=== PATIENT | female | born 1955 | race Caucasian/White ===

== ENCOUNTER 2018-07-13 14:46 | Observation (INO) ==
[2018-07-13] MEDS ORDERED: *HR* LORazepam 1 MG TABLET PO PRN (17:47)
[2018-07-13] MEDS ORDERED: Acetaminophen 325 MG TABLET PO PRN (17:48)
[2018-07-13] MEDS ORDERED: traMADol 50 MG TABLET PO PRN (17:48)
[2018-07-13] MEDS ORDERED: Naloxone 0.4 MG/ML INJ IVP PRN (17:48)
[2018-07-13] MEDS ORDERED: *HR* Dextrose 50 % in Water (Syg) 50 ML SYRINGE IVP PRN (17:51)
[2018-07-13] MEDS ORDERED: D5% in Water 1,000 ML IVC PRN (17:51)
[2018-07-13] MEDS ORDERED: Dextrose Gel 15 GM/37.5 ML TUBE PO PRN ×2 (17:51)
[2018-07-13] MEDS ORDERED: Ondansetron 4 MG/2 ML VIAL IVP PRN (17:53)
[2018-07-13] MEDS ORDERED: 0.9 % Sodium Chloride 2,000 ML IVC SCH (18:00)
--- NOTE | 2018-07-13 18:09 | Internal Med History&Physical ---
Date of Encounter: 07/13/18 Time of Encounter: 17:59 Internal Medicine - H&P: HPI Admitted From: Home Plans for Post Hospital Care: Home History of present illness: Ms. Lucas is a 62 year old female with past medical history of diabetes, asthma, with past medical history of diabetes, asthma, hypertension, and a current smoker presented with acute onset of vertigo. Patient was in her usual health state until yesterday morning, when she had a severe vertigo after getting up. The vertigo was described by patient as a spinning sensation, she had trouble maintaining balance. Vertigo is intermittent, relieved by sitting still or laying down, worsened by moving head. She had no recent URI or other infection. She denies headache, numbness, weakness, or tingling. No Hx of CVA or migraine. She denies prior similar attacks. She also denies tinnitus or hearing loss. She presented to [facility] , where her vital signs appeared normal. Labs including CBC and BMP were unremarkable. A CXR and CT head showed no acute abnormalities. She was transferred to this hospital for MRI and further evaluation. Past Med Surg Social Fam HX - Past Medical History Medical history: asthma, COPD, diabetes, GERD, hypertension Psychiatric history: no psych history - Past Surgical History Surgical History: hysterectomy - Social History Smoking Status: Current every day smoker Smokeless Tobacco Status: No Alcohol use: none Drug use: none - Family History Mother Hx Family Cardiac Disorders: Yes Father Hx Family Cardiac Disorders: Yes Internal Medicine - H&P: Meds Fluticasone/Salmeterol [Advair 100-50 Diskus] 1 each IH BID 07/08/16 [History] Lisinopril [Zestril] 10 mg PO DAILY 07/08/16 [History] Lovastatin 40 mg PO HS 07/08/16 [History] Metformin HCl [Glucophage] 1,000 mg PO BID 07/08/16 [History] OxyCODONE Immed Rel [Roxicodone 5 MG] 5 mg PO Q6HR PRN #60 tablet 07/09/16 [Rx] Allergy/AdvReac Type Severity Reaction Status Date / Time No Known Allergies Allergy Verified 07/08/16 07:06 All Systems PM: A 10-system review of systems was performed and is negative for pertinent findings except as documented above in the HPI. Review of systems: REVIEW OF SYSTEMS: CONSTITUTIONAL: No weight loss, fever, chills, weakness or fatigue. HEENT: Eyes: No visual loss, blurred vision, double vision or yellow sclerae. Ears, Nose, Throat: No hearing loss, sneezing, congestion, runny nose or sore throat. SKIN: No rash or itching. CARDIOVASCULAR: No chest pain, chest pressure or chest discomfort. No palpitations or edema. RESPIRATORY: No shortness of breath, cough or sputum. GASTROINTESTINAL: No anorexia, nausea, vomiting or diarrhea. No abdominal pain or blood. GENITOURINARY: No dysuria, urgency, or frequency. NEUROLOGICAL: see HPI. MUSCULOSKELETAL: No muscle, back pain, joint pain or stiffness. HEMATOLOGIC: No anemia, bleeding or bruising. LYMPHATICS: No enlarged nodes. No history of splenectomy. PSYCHIATRIC: No history of depression or anxiety. ENDOCRINOLOGIC: No reports of sweating, cold or heat intolerance. No polyuria or polydipsia. - Constitutional Vitals: Temp Pulse Resp BP Pulse Ox 97.8 F 70 18 129/77 95 07/13/18 17:12 07/13/18 17:12 07/13/18 17:12 07/13/18 17:12 07/13/18 17:12 General appearance: Present: A&O X 3, answers questions appropriately Exam: PHYSICAL EXAMINATION: GENERAL APPEARANCE: The patient is alert, oriented and in no acute distress. HEENT: Head is normocephalic. The sinuses are nontender. Pupils are equal and reactive. The nares are patent. Oropharynx clear without lesions. NECK: Supple without lymphadenopathy. HEART: Regular rate and rhythm. LUNGS: No crackles or wheezes are heard. ABDOMEN: Soft, nontender, nondistended with good bowel sounds heard. Inguinal area is normal. EXTREMITIES: Without cyanosis, clubbing or edema. NEUROLOGICAL: Normal motor and sensory function. negative cerebellar signs. normal hearing test. Left sided nystagmus. Positive [place]-Hallpike maneuver. SKIN: Warm and dry without any rash. - Assessment and plan (1) Vertigo Current Visit: Yes Status: Acute Assessment and plan: 62 year-old female presented with acute onset of vertigo. Vertigo can be elicited by turning eye to right side. Relieved by fixing gaze. right side [place]- Hallpike maneuver elicited strong vertigo. Sings and symptoms are highly suggestive peripheral etiology rather than central pathology. Intermittent and relatively brief symptoms and abated by sitting still, combined with a positive [place]-Hallpike maneuver is suggestive for BPPV. - MRI brain to r/o posterior circulation stroke. - Symptoms relief with oral antivert. - OT for vestibular rehab ( [place] Maneuver) (2) HTN (hypertension) Current Visit: No Status: Chronic Assessment and plan: BP well controlled, continue home medication. Qualifiers: Hypertension type: essential hypertension Qualified Code(s): I10 - Essential (primary) hypertension (3) Asthma Current Visit: No Status: Chronic Assessment and plan: No respiratory distress, continue home medication. Qualifiers: Asthma persistence: unspecified Asthma complication type: unspecified Qualified Code(s): J45.909 - Unspecified asthma, uncomplicated (4) Diabetes mellitus Current Visit: No Status: Chronic Assessment and plan: Continue sliding scale, hold metformin. Qualifiers: Diabetes mellitus type: type 2 Diabetes mellitus snf insulin use: without snf use Diabetes mellitus complication status: without complication Qualified Code(s): E11.9 - Type 2 diabetes mellitus without complications (5) DVT prophylaxis Current Visit: Yes Status: Acute Assessment and plan: Heparin subcutaneous - Time Spent With Patient Total time spent is greater than 50% in coordination of care (as documented) at patient's floor/unit and/or counseling patient: Greater than 35 minutes
[2018-07-13] MEDS ORDERED: Albuterol 2.5 MG/3 ML NEBULIZER IH PRN (18:29)
[2018-07-13] MEDS: Budesonide/Formoterol 80/4.5 MDI IH SCH (20:23)
[2018-07-13] MEDS ORDERED: Insulin LISPRO 300 UNITS/3 ML VIAL SQ SCH (21:00)
[2018-07-14 04:44] LABS: Basophils # 0.1 K/mcL (0.0-0.2); Basophils % 0.7 %; Eosinophils # 0.2 K/mcL (0.0-0.6); Eosinophils % 2.7 %; Hematocrit 38.9 % (35.3-44.9); Hemoglobin 12.8 g/dL (11.5-15.4); Immature Granulocytes % 0.4 % (0-4); Lymphocytes # 2.6 K/mcL (0.6-4.6); Lymphocytes % 32.9 %; Mean Corpuscular HGB Conc 32.9 g/dL (31.6-35.5); Mean Corpuscular Hemoglobin 31.1 pg (28.0-33.3); Mean Corpuscular Volume 94.4 fL (83.0-100.0); Mean Platelet Volume 10.6 fL (9.4-12.4); Monocytes # 0.5 K/mcL (0.0-1.3); Monocytes % 6.4 %; Neutrophils # 4.6 K/mcL (1.6-8.9); Platelet Count 203 K/mcL (140-400); Red Blood Count 4.12 M/mcL (3.82-4.97); Red Cell Distribution Width 12.8 % (11.5-14.5); Segmented Neutrophils % 56.9 %
[2018-07-14 05:05] LABS: BUN/Creatinine Ratio 20 (6-26); Blood Urea Nitrogen 14 mg/dL (8-23); Calcium 8.5 mg/dL (8.6-10.3); Carbon Dioxide 25 mEq/L (23-29); Chloride 111 mEq/L (98-107); Glucose 135 mg/dL (70-105); Osmolality,Calculated 297 (280-300); Sodium 142 mEq/L (136-145); eGFR For Non-African Americans > 60 (> 60)
[2018-07-14] MEDS: Budesonide/Formoterol 80/4.5 MDI IH SCH (08:13)
[2018-07-14] MEDS ORDERED: Fluticasone Propionate Nasal 50 MCG/SPRAY BOTTLE NS SCH (09:00)
[2018-07-14] MEDS: Insulin LISPRO 300 UNITS/3 ML VIAL SQ SCH ×2 (09:35→11:58)
--- NOTE | 2018-07-14 10:25 | Neurology - Consult Note ---
<Ar Garza - Last Filed: 07/14/18 10:21> Date of Encounter: 07/14/18 (q) Time of Encounter: 10:27 Assessment and Plan (1) BPPV (benign paroxysmal positional vertigo) Current Visit: Yes Status: Acute Patient has right benign proximal positional vertigo. [place]-Hallpike maneuver positive on the right. MRI of the brain was negative for CVA/acute changes. Patient also does not have tenderness, hearing loss. Unlikely this is central pathology. Plan: Recommend continuing meclizine. Primary may consult ENT for further evaluation. Qualifiers: Laterality: right Qualified Code(s): H81.11 - Benign paroxysmal vertigo, right ear History of Present Illness Chief complaint: dizziness HPI: Ms. Lucas is a 62 year old female presents with chief complaint of dizziness. This started yesterday morning when she woke up. Patient sat up in bed and this started having room spinning sensation with nausea. Initially patient was able to ambulate but as the day progressed she had difficulty. Patient denies ever h aving these symptoms in the past. She also denies headache, numbness, tingling, slurred speech, weakness, tinnitus, hearing loss, ear pain, double vision. Patient's CT of the head was negative as well as MRI. Past Med Surg Social Fam HX - Past Medical History Medical history: asthma, COPD, diabetes, GERD, hypertension Psychiatric history: no psych history - Past Surgical History Surgical History: hysterectomy Additional surgical history: spinal senosis surgery shira - Social History Smoking Status: Current every day smoker Packs per day: 1 Smokeless Tobacco Status: No Alcohol use: none Drug use: none - Family History Mother Hx Family Cardiac Disorders: Yes Hx Family Respiratory Disorders: Yes Hx Family Cancer: Yes Hx Family GI Disorders: No Hx Family Genitourinary Disorders: No Hx Family Endocrine Disorder: Yes Hx Family Musculoskeletal Disorders: No Hx Family Neuromuscular Disorders: No Hx Family Neurologic Disorders: No Hx Family HEENT Disorders: No Hx Family Autoimmune Disorders: No Hx Family Reproductive Disorders: No Hx Family Psychosocial Disorders: No Hx Family Medical Disorders: No Father Hx Family Cardiac Disorders: Yes Hx Family Respiratory Disorders: Yes Hx Family Cancer: Yes (lung) Hx Family GI Disorders: No Hx Family Genitourinary Disorders: No Hx Family Endocrine Disorder: Yes Hx Family Musculoskeletal Disorders: No Hx Family Neuromuscular Disorders: No Hx Family Neurologic Disorders: No Hx Family HEENT Disorders: No Hx Family Autoimmune Disorders: No Hx Family Reproductive Disorders: No Hx Family Psychosocial Disorders: No Medications and Allergies Metformin HCl [Glucophage] 1,000 mg PO QPM 07/08/16 [History] Ranitidine HCl [Acid Cook Italian Style Food] 150 mg PO QPM 07/13/18 [History] Albuterol Sulfate [Ventolin Hfa] 2 puff IH Q4-6H PRN 07/14/18 [History] BuPROPion XL (24 HR) [Wellbutrin XL] 150 mg PO DAILY 07/14/18 [History] Fluticasone/Salmeterol [Advair 500-50 Diskus] 1 puff IH BID 07/14/18 [History] Lisinopril/Hydrochlorothiazide [Zestoretic 10-12.5 mg Tablet] 1 tab PO DAILY 07/14/18 [History] Simvastatin [Zocor] 40 mg PO HS 07/14/18 [History] Allergy/AdvReac Type Severity Reaction Status Date / Time No Known Allergies Allergy Verified 07/14/18 08:28 All Systems: The remainder of the systems were reviewed and are negative Review of Systems: Constitutional: Denies fever, chills HEENT: Denies headache, trauma, blurry vision, eye discharge, ear pain, ear discharge neck pain, sore throat, rhinorrhea Heart: Denies chest pain palpitations, LE edema Lungs: Denies shortness of breath cough Abdomen: Denies abdominal pain nausea vomiting diarrhea MSK: Denies back pain, falls, joint pain Kidney: Denies dysuria, hematuria Skin: Denies rash, ulcers Neuro: As per history of present illness Psych: denies axniety, depression Physical Examination - Vital Signs Vital Signs: Initial Vital Signs Temp Pulse Resp BP Pulse Ox 97.8 F 70 18 129/77 95 07/13/18 17:12 07/13/18 17:12 07/13/18 17:12 07/13/18 17:12 07/13/18 17:12 - Exam Exam: General: pleasant, without distress HEENT: Head atraumatic, normocephalic, EOMI, PERRL, absent ear discharge or trauma, Moist Mucous Membranes, uvula midline Neck: nontender to palpation, absent lymphadenopathy, Cardiovascualr: Regular rate and rhythm with no murmur, absent gallops or rubs, absent pedal edema, radial pulses 2 out of 4 Lungs: Clear to auscultation bilaterally, not in respiratory distress Abdomen: Soft nontender, nondistended positive bowel sounds, absent hepatomegaly Skin: warm and dry, absent rash, absent open wounds and nodules MSK: absent clubbing, cyanosis, joints without swelling Psych: good insight and judgment - Constitutional General appearance: comfortable - Neurologic Sensorimotor examination: intact Motor examination - right side: 01/16: deltoids, biceps, triceps, wrist flexion, wrist extension, recruiting coordinator, hip flexors, tibialis Anterior, quadriceps, toe extension (EHL), plantarflexion Motor examination - left side: 01/16: deltoids, biceps, triceps, wrist flexion, wrist extension, hip flexors, recruiting coordinator, quadriceps, tibialis Anterior, toe extension (EHL), plantarflexion Detailed sensory examination: intact Reflex and gait examination: intact Reflexes: Biceps: 2+, Triceps: 2+, Brachioradialis: 2+, Patella: 2+, Achilles: 2+ Mental Status Examination: awake, alert, oriented to person, oriented to place, oriented to time, follows commands appropriately, answers questions appropriately, no agnosia, no aphasia, no aproxia Cranial nerve examination: PERRL, EOMI, visual wolf intact, sensory to face intact, mastication intact, no facial asymmetry is present, no dysarthria, hearing is intact symmetrically, soft palate elevates bilaterally upon phonation, flexes SCM and trapezius muscles symmetrically with full power, tongue protrudes midline, no atrophy or facial fasiculations present Cerebellar examination: no dysmetria, performs finger to nose and heel to sheldon symmetrically without ataxia, no difficulty with rapid alternating movements Ocular dysmotility: gaze-evoked nystagmus Results - Laboratory Findings CBC and BMP: 07/14/18 04:02 07/14/18 04:02 Abnormal lab findings: Abnormal lab results Chloride 111 mEq/L (98-107) H 07/14/18 04:02 Glucose 135 mg/dL (70-105) H 07/14/18 04:02 POC Glucose 143 mg/dL (70-99) H 07/13/18 21:09 Calcium 8.5 mg/dL (8.6-10.3) L 07/14/18 04:02 Consult Discharge Plan - Plan Referrals: Little Victoria, [employer] TECHNICIAN [Primary Care Provider] - 07/21/18 1:00 pm <Ben Salcido - Last Filed: 07/14/18 15:32> Date of Encounter: 07/14/18 Time of Encounter: 07:30 Assessment and Plan (1) BPPV (benign paroxysmal positional vertigo) Current Visit: Yes Status: Acute I agree with Dr. Garza's assessment as stated above. Neurologic examination is normal, the [place]-Hallpike maneuver reproduced her symptoms. MRI scan of the brain was negative for evidence of brainstem infarct or acoustic neuroma. I will reevaluate your request. Qualifiers: Laterality: right Qualified Code(s): H81.11 - Benign paroxysmal vertigo, right ear History of Present Illness HPI: The chart was reviewed, the patient was seen and examined. I did review the CT as well as the MRI scan of the brain. I agree with Dr. Garza's assessment as stated above. Patient denies any focal findings. She has had 2 days of vertigo with associated nausea. He denies any tinnitus denies any numbness tingling or weakness of the face arms or legs. Symptoms seem to be worse when lying supine or turning toward the right. All Systems: The remainder of the systems were reviewed and are negative Review of Systems: The balance of the systems review is negative. Physical Examination - Vital Signs Vital Signs: Initial Vital Signs Temp Pulse Resp BP Pulse Ox 97.8 F 70 18 129/77 95 07/13/18 17:12 07/13/18 17:12 07/13/18 17:12 07/13/18 17:12 07/13/18 17:12 - Exam Exam: Normal as above. - Neurologic Detailed motor examination: full strength in all major muscle groups Motor examination - right side: 5/5: deltoids, biceps, triceps, wrist flexion, wrist extension, recruiting coordinator, hip flexors, tibialis Anterior, quadriceps, toe extension (EHL), plantarflexion Motor examination - left side: 5/5: deltoids, biceps, triceps, wrist flexion, wrist extension, hip flexors, recruiting coordinator, quadriceps, tibialis Anterior, toe extension (EHL), plantarflexion Mental Status Examination: awake, alert, oriented to person, oriented to place, oriented to time, follows commands appropriately, answers questions appropriately, no agnosia, no aphasia, no aproxia Cranial nerve examination: PERRL, EOMI, visual wolf intact, corneal reflexes brisk symmetrically, sensory to face intact, mastication intact, no facial asymmetry is present, no dysarthria, hearing is intact symmetrically, soft palate elevates bilaterally upon phonation, gag reflex intact, flexes SCM and trapezius muscles symmetrically with full power, tongue protrudes midline, no atrophy or facial fasiculations present, veritgo (Symptoms worsened, vertigo as well as nystagmus reproduced with provocative maneuvers.) Cerebellar examination: no dysmetria, performs finger to nose and heel to sheldon symmetrically without ataxia, no gait ataxia, no truncal ataxia, no difficulty with rapid alternating movements Results - Laboratory Findings CBC and BMP: 07/14/18 04:02 07/14/18 04:02 Abnormal lab findings: Abnormal lab results Chloride 111 mEq/L (98-107) H 07/14/18 04:02 Glucose 135 mg/dL (70-105) H 07/14/18 04:02 POC Glucose 143 mg/dL (70-99) H 07/13/18 21:09 Calcium 8.5 mg/dL (8.6-10.3) L 07/14/18 04:02
[2018-07-14 15:47] VITALS: BP 106/66
--- NOTE | 2018-07-14 17:07 | Discharge Summary ---
- NOTES TO OUTPATIENT PROVIDER Notes to Outpatient Provider: f/u with outpatient OT for vestibular rehab [facility]. f/u with PCP within 2 weeks. Date of Encounter: 07/14/18 Time of Encounter: 17:03 - Discharge Diagnosis (1) BPPV (benign paroxysmal positional vertigo) Priority: Primary Status: Acute Qualifiers: Laterality: right Qualified Code(s): H81.11 - Benign paroxysmal vertigo, right ear Hospital course: Ms. Lucas is a 62 year old female with past medical history of diabetes, asthma, with past medical history of diabetes, asthma, hypertension, and a current smoker presented with acute onset of vertigo. Patient was in her usual health state until yesterday morning, when she had a severe vertigo after getting up. The vertigo was described by patient as a spinning sensation, she had trouble maintaining balance. Vertigo is intermittent, relieved by sitting still or laying down, worsened by moving head. She had no recent URI or other infection. She denies headache, numbness, weakness, or tingling. No Hx of CVA or migraine. She denies prior similar attacks. She also denies tinnitus or hearing loss. MRI brain showed no acute infarct. She is positive for [place]-Hallpike Maneuver. OT was consulted and Gary maneuver was performed and pt had relief of symptoms. She will continue f/u with OT as outpatient for vestibular rehab. She will f/u with PCP within 2 weeks. Discharge discussed with: patient, family Time spent discussing smoking cessation with patient: more than 10 minutes - Time Spent with Patient Total time spent providing and/or coordinating discharge services: Greater than 30 minutes - Discharge Medications Prescriptions: Fluticasone Propionate Nasal [Flonase] 50 mcg NS DAILY #1 bottle Meclizine [Antivert] 25 mg PO TID PRN #20 tablet PRN Reason: Dizziness Home Medications: Metformin HCl [Glucophage] 1,000 mg PO QPM 07/08/16 [History] Ranitidine HCl [Acid Finance Mgr] 150 mg PO QPM 07/13/18 [History] Albuterol Sulfate [Ventolin Hfa] 2 puff IH Q4-6H PRN 07/14/18 [History] BuPROPion XL (24 HR) [Wellbutrin Xl] 150 mg PO DAILY 07/14/18 [History] Fluticasone Propionate Nasal [Flonase] 50 mcg NS DAILY #1 bottle 07/14/18 [Rx] Fluticasone/Salmeterol [Advair 500-50 Diskus] 1 puff IH BID 07/14/18 [History] Lisinopril [Zestril] 10 mg PO DAILY tablet 07/14/18 [Rx] Lisinopril/Hydrochlorothiazide [Zestoretic 10-12.5 mg Tablet] 1 tab PO DAILY [History] Meclizine [Antivert] 25 mg PO TID PRN #20 tablet 07/14/18 [Rx] Simvastatin [Zocor] 40 mg PO HS 07/14/18 [History] Allergies/Adverse Reactions: Allergy/AdvReac Type Severity Reaction Status Date / Time No Known Allergies Allergy Verified 07/14/18 08:28 Date of admission: 07/13/18 16:58 Primary care physician: Little Victoria, Consults: 07/14/18 07:19 Consult to Physical Therapy [CONS] Routine Comment: Evaluate, develop and implement POC Reason for Consult: eval Does patient have active BEDREST order?: No Is patient medically & hemodynamically stable?: Yes Patient assessed for mobility or mobilized this visit?: No 07/14/18 07:40 Consult to Neurology [CONS] Routine Consulting Provider: Neurology [facility] Reason for Consult: vertigo Call Completed: Yes Anticipated date of discharge: 07/14/18 - Constitutional Vitals: Temp Pulse Resp BP Pulse Ox 98.7 F 78 18 106/66 94 07/14/18 15:46 07/14/18 15:46 07/14/18 15:46 07/14/18 15:46 07/14/18 15:46 General appearance: Present: A&O X 3, answers questions appropriately Exam: PHYSICAL EXAMINATION: GENERAL APPEARANCE: The patient is alert, oriented and in no acute distress. HEENT: Head is normocephalic. The sinuses are nontender. Pupils are equal and reactive. The nares are patent. Oropharynx clear without lesions. NECK: Supple without lymphadenopathy. HEART: Regular rate and rhythm. LUNGS: No crackles or wheezes are heard. ABDOMEN: Soft, nontender, nondistended with good bowel sounds heard. Inguinal area is normal. EXTREMITIES: Without cyanosis, clubbing or edema. NEUROLOGICAL: Normal motor and sensory function. negative cerebellar signs. normal hearing test. Left sided nystagmus. Positive [place]-Hallpike maneuver. SKIN: Warm and dry without any rash. - Patient Status Disposition: Home, Self-Care Condition: Fair Functional capacity at discharge: uses cane/walker Overall status at discharge: patient is progressing back to baseline - Discharge Instructions Follow Up With: Little Victoria CNP [Primary Care Provider] - 07/21/18 1:00 pm - Diet and Activity Activity: increase activity as tolerated Diet: diabetic diet
== END 2018-07-14 18:04 | disposition home or self-care (01) ==
LOC: 3BNU
PROVIDERS: ADMIT Internal Medicine; ATTEND Internal Medicine